=== PATIENT | female | born 1950 | race Two or more races ===

== ENCOUNTER 2023-08-15 19:51 | Emergency (ER) | payer OTHER ==
[~2023-08-15] VITALS: Ht 162.6 cm; Wt 61.7 kg
[2023-08-15] MEDS ORDERED: PROTONIX20 MG PO (20:05)
[2023-08-15] MEDS ORDERED: ZOLOFT20 MG/1 ML PO (20:05)
[2023-08-15] MEDS ORDERED: LAMICTAL25 M1 PO (20:05)
[2023-08-15] MEDS ORDERED: PLAVIX75 MG PO (20:05)
[2023-08-15 21:50] LABS: HEMATOCRIT 31.4 % (36.0-45.00); HEMOGLOBIN 11.3 g/dL (12.0-15.00); MEAN CELL VOLUME 86.8 fL (80.00-100.00); MEAN CORPUSCULAR HEMOGLOBIN 31.2 pg (27.00-32.0); PLATELET COUNT 540 K/uL (150-450); RED BLOOD COUNT 3.61 M/uL (4.00-6.00); RED CELL DISTRIBUTION WIDTH 15.3 % (11.5-14.5)
[2023-08-15 21:56] LABS: PH,URINE 6.5 (5.0-8.0); URINE APPEARANCE Clear; URINE BILIRRUBIN Negative (NEGATIVE); URINE BLOOD Trace; URINE COLOR Yellow; URINE GLUCOSE Negative (NEGATIVE); URINE LEUKOCYTE Negative; URINE NITRATE Negative; URINE PROTEIN Negative (NEGATIVE); URINE UROBILINOGEN 0.2 E.U./dl
[2023-08-15 21:57] LABS: URINE BACTERIA 8.8 uL (0.0-1933); URINE RBC 11.9 uL (0.0-20.8)
[2023-08-15 22:09] LABS: URINE EPITHELIAL CELLS 0.4 uL (0.0-38.8); URINE WBC 1.3 uL (0.0-23.2)
[2023-08-15 22:21] LABS: ALBUMIN 2.3 gm/dL (3.4-5.0); BILIRUBIN TOTAL 0.52 mg/dL (0.3-1.2); CALCIUM 8.7 mg/dL (8.5-10.1); CREATININE SERUM 0.47 mg/dL (0.55-1.02); GFR 129.89; GLOBULINA 4.7 G/DL (2.4-3.5); POTASSIUM 3.91 mEq/L (3.5-5.1)
[2023-08-16] MEDS ORDERED: CIPRO500 MG PO (06:40)
[2023-08-16] MEDS ORDERED: LEVSIN/SL0.125 MG SL (06:40)
[2023-08-16] MEDS ORDERED: INTESTINEX680 M2 PO (06:40)
== END 2023-08-16 06:47 ==
LOC: ER 19:51
PROVIDERS: Emergency Medicine
DX: R10.9 Unspecified abdominal pain (principal); I10 Essential (primary) hypertension; I49.8 Other specified cardiac arrhythmias; K52.89 Other specified noninfective gastroenteritis and colitis; K57.30 Diverticulosis of large intestine without perforation or abscess without bleeding; K44.9 Diaphragmatic hernia without obstruction or gangrene
CPT/HCPCS: 36415; 74177; 96365; 96366; 99284; J0744; J1885; J7030